=== PATIENT | female | born 1945 | race Caucasian/White ===

== ENCOUNTER → 2016-05-27 | Outpatient (CLI) | payer MEDICARE ==
--- NOTE | 2016-05-27 11:25 | KCIC ---
PROCEDURE Coronary artery calcium score HISTORY Calcium screening. Family history of heart disease. White coat syndrome with hypertension. TECHNIQUE High resolution, computed tomography of the heart was performed with ECG gating and suspended respiration using the Siemens HeartView CT. No contrast material was administered. Post processing was performed on the 3-D computer workstation using diastolic phase images to measure the amount of coronary vascular calcium. Scoring was performed utilizing the Agatston Method. COMPARISON None. 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 There is fatty infiltration of the liver. Cannot exclude wall thickening of the distal esophagus. Considerations include esophagitis, Milan's esophagus, or esophagus neoplasm. Cardiac size is normal, no pericardial effusion. Visualized lungs are clear. Bones unremarkable. Coronary arteries: CALCIUM IS PRESENT TOTAL AGATSTON CALCIUM SCORE =47.1. Calcium is detected in the coronary circulation and confirms the presence of atherosclerotic plaque. Score in the LAD is 33.4, circumflex 13.7, right coronary artery 0. No significant calcium is identified within the left main coronary artery. The presence of coronary calcium confirms the presence of atherosclerotic plaque. The greater the amount of coronary calcium, the greater the likelihood of stenotic or occlusive coronary artery disease. However, there is not a one-to-one relationship, and findings may not be site specific. The total amount of calcium correlates best with the total amount of atherosclerotic plaque, although the true "plaque burden" can be underestimated by calcium score. Mild coronary atherosclerosis is present. Individuals in this score range typically have mild to moderate luminal irregularity at coronary angiography. There is an LOW to INTERMEDIATE RISK of cardiovascular events based on this test. IMPRESSION 1. Coronary atherosclerosis is present, mild amount. 2. Low to intermediate risk of cardiovascular event. 3. Cannot exclude wall thickening of the distal esophagus. Correlate to any clinical symptoms. 4. Fatty infiltration of the liver. RECOMMENDATIONS 1. Further evaluation and prevention strategies should be based on global assessment of cardiovascular risk factors in addition to the results of this test. 2. Aggressive reduction of modifiable cardiovascular risk factors should be considered. Additional supporting information concerning the findings and recommendation contained within this report can be found in the consensus statements on coronary vascular calcium published by the [place] [employer] and [place] [employer] 5 Conference (Circulation 1996; 94: 1458-1323; J Am [place] Cardiol 2000; 36: 326-340 and Circulation 2000; 101: 111-116). Electronically signed by: Aj Matias MD (May 27, 2016 11:23:51)
== END | disposition home or self-care (01) ==
LOC: KCIC CT 10:09
PROVIDERS: ATTEND Family Medicine
DX: I10 Essential (primary) hypertension (principal)
CPT/HCPCS: 75571